=== PATIENT | female | born 1940 | race Hispanic/Latino ===

== ENCOUNTER 2023-05-28 08:43 | Emergency (ER) | payer OTHER, MEDICARE ==
[~2023-05-28] VITALS: Ht 157.5 cm; Wt 74.4 kg
[2023-05-28 08:44] VITALS: BP 168/79; PULSE 83; RESP 17
[2023-05-28] MEDS ORDERED: ONDANSETRON 4MG INJ IVP ONE (09:30)
[2023-05-28] MEDS ORDERED: LACTATED RINGERS 1000ML 1,000 ML IV ONE (09:30)
[2023-05-28] MEDS ORDERED: KETOROLAC 30MG VIAL (30MG/ML) IVP ONE (10:00)
[2023-05-28] MEDS ORDERED: METH-662 PO (11:41)
[2023-05-28] MEDS ORDERED: IBUP-2077 PO (11:41)
== END 2023-05-28 12:51 | disposition home or self-care (01) ==
LOC: EDH 08:43
DX: S33.5XXA Sprain of ligaments of lumbar spine, initial encounter (principal); Z90.49 Acquired absence of other specified parts of digestive tract; X58.XXXA Exposure to other specified factors, initial encounter; Y93.89 Activity, other specified; Y92.89 Other specified places as the place of occurrence of the external cause; Y99.8 Other external cause status
CPT/HCPCS: 99284; 96374; 96361; 96375; 73502; 73552; J7120; J2405; J1885